=== PATIENT | female | born 1950 | race Caucasian/White ===

== ENCOUNTER 2017-08-31 08:37 | Observation (INO) | payer MEDICARE, BC ==
[2017-08-31] MEDS ORDERED: Ondansetron 4 MG/2 ML SDV IVPUSH ONE ×2 (09:59→11:07)
[2017-08-31] MEDS ORDERED: Sodium Chloride 0.9% 1,000 ML IV SCH (10:00)
[2017-08-31] MEDS ORDERED: Ondansetron 4 MG/2 ML SDV ONE ×2 (10:10→10:59)
[2017-08-31] MEDS: Sodium Chloride 0.9% 10 ML Syringe FLUSH PRN ×2 (10:16→21:54)
--- NOTE | 2017-08-31 10:30 | EDM.PDOC ---
ED HPI GENERAL MEDICAL PROBLEM - General Chief Complaint: General Stated Complaint: DIARRHEA Time Seen by Provider: 08/31/17 09:45 Source of Information: Reports: Patient, Family History Limitations: Reports: No Limitations - History of Present Illness INITIAL COMMENTS - FREE TEXT/NARRATIVE: This is a 67yo F with left knee replacement done in [place] on 08-04-17. Patient did develop a DVT of the leg and placed on coumadin. She has a f/u coumadin check tomorrow as her INR has been elevated. Patient was also placed on keflex as they felt she may have had a cellulitis of the left lower leg. Patient has been having loose but not watery stools the past week and she has felt nauseated and unable to eat the past 3 days. Onset: Gradual Duration: Day(s): Location: Reports: Generalized Severity: Moderate Improves with: Reports: None Worsens with: Reports: None Associated Symptoms: Reports: Loss of Appetite, Nausea/Vomiting - Related Data Allergies Allergy/AdvReac Type Severity Reaction Status Date / Time No Known Allergies Allergy Verified 08/31/17 11:16 Home Meds: Home Meds Cyclobenzaprine HCl 5 mg PO TID PRN 08/31/17 [History] Diazepam [Valium] 5 mg PO Q6HR 08/31/17 [History] Escitalopram [Lexapro] 10 mg PO DAILY 08/31/17 [History] Gabapentin [Neurontin] 300 mg PO BID 08/31/17 [History] Hydrochlorothiazide [Hydrochlorothiazide] 25 mg PO DAILY 08/31/17 [History] Vitamin B Complex [B Complex] 1 cap PO DAILY 08/31/17 [History] Warfarin Sodium [Jantoven] 2.5 mg PO ASDIRECTED 08/31/17 [History] atorvaSTATin Calcium [Atorvastatin Calcium] 40 mg PO DAILY 08/31/17 [History] metFORMIN HCl [Metformin HCl] 500 mg PO BID 08/31/17 [History] oxyCODONE 5 mg PO Q4HR PRN 08/31/17 [History] oxyCODONE ER [OxyCONTIN] 10 mg PO BID 08/31/17 [History] Past Medical History Cardiovascular History: Reports: Blood Clots/VTE/DVT Neurological History: Reports: Other (See Below) Other Neuro History: 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 ED EXAM, GENERAL - Physical Exam Exam: See Below Exam Limited By: No Limitations General Appearance: Alert, WD/WN, Mild Distress Eye Exam: Bilateral Eye: EOMI, PERRL Ears: Normal External Exam Nose: Normal Inspection Throat/Mouth: Normal Inspection Head: Atraumatic, Normocephalic Neck: Normal Inspection, Supple, Non-Tender, Full Range of Motion Respiratory/Chest: No Respiratory Distress, Lungs Clear, Normal Breath Sounds Cardiovascular: Normal Peripheral Pulses, Regular Rate, Rhythm Peripheral Pulses: 2+: Dorsalis Pedis (L), Dorsalis Pedis (R) GI/Abdominal: Abnormal Bowel Sounds (decreased) Back Exam: Normal Inspection Extremities: Normal Inspection Neurological: Alert, Oriented, Other (left foot drop- consistent with history ) Psychiatric: Normal Affect, Normal Mood Skin Exam: Warm, Dry, Intact Course - Orders/Labs/Meds Orders: Active Orders 24 hr Category Date Time Status Patient Status [ADT] Routine ADT 08/31/17 11:56 Ordered EKG Documentation Completion [RC] ASDIRECTED Care 08/31/17 09:41 Active Oxygen Therapy [RC] PRN Care 08/31/17 11:56 Ordered Vital Signs [RC] Q4H Care 08/31/17 11:56 Ordered Regular Diet [DIET] Diet 08/31/17 Dinner Ordered Dextrose 5%-0.9% NaCl with KCl [D5 NS with 20 mEq KCl] Med 08/31/17 11:15 Active 1,000 ml IV ASDIRECTED Ondansetron [Zofran] Med 08/31/17 12:00 Ordered 4 mg IVPUSH Q6H Promethazine [Phenergan] 12.5 mg Med 08/31/17 11:58 Ordered Sodium Chloride 0.9% [Normal Saline] 50 ml IV Q6H Sodium Chloride 0.9% [Normal Saline] 1,000 ml Med 08/31/17 10:00 Active IV ASDIRECTED Sodium Chloride 0.9% [Saline Flush] Med 08/31/17 09:59 Active 10 ml FLUSH ASDIRECTED PRN Peripheral IV Insertion Adult [OM.PC] Routine Oth 08/31/17 09:59 Ordered Medication Orders Sodium Chloride (Normal Saline) 1,000 mls @ 450 mls/hr IV ASDIRECTED RAJWINDER Last Admin: 08/31/17 10:04 Dose: 450 mls/hr Potassium Chloride/Dextrose/Sod Cl (D5 Ns With 20 Meq Kcl) 1,000 mls @ 250 mls/ hr IV ASDIRECTED RAJWINDER Last Admin: 08/31/17 11:37 Dose: 250 mls/hr Promethazine HCl 12.5 mg/ (Sodium Chloride) 50.5 mls @ 200 mls/hr IV Q6H PRN PRN Reason: Nausea/Vomiting Ondansetron HCl (Zofran) 4 mg IVPUSH Q6H RAJWINDER Sodium Chloride (Saline Flush) 10 ml FLUSH ASDIRECTED PRN PRN Reason: Keep Vein Open Last Admin: 08/31/17 10:16 Dose: 10 ml Labs: Laboratory Tests 08/31/17 08/31/17 08/31/17 Range/Units 09:50 09:50 09:51 WBC 6.4 (4.0-11.0) K/uL RBC 3.94 (3.80-5.80) M/uL Hgb 10.7 L (11.5-16.5) g/dL Hct 32.3 L (37.0-47.0) % MCV 82 (76-96) fL MCH 27.2 (27.0-32.0) pg MCHC 33.1 (31.0-35.0) g/dL RDW 13.6 (11.0-16.0) % Plt Count 566 H (150-500) K/uL MPV 9.1 (6.0-10.0) fL Neut % (Auto) 70.1 H (45.0-70.0) % Lymph % (Auto) 21.9 (20.0-40.0) % [place] % (Auto) 6.9 (3.0-10.0) % Eos % (Auto) 0.5 L (1.0-5.0) % Baso % (Auto) 0.6 H (0.0-0.5) % Neut # (Auto) 4.45 (2.00-7.50) K/uL Lymph # (Auto) 1.39 L (1.50-4.00) K/uL [place] # (Auto) 0.44 (0.20-0.80) K/uL Eos # (Auto) 0.03 L (0.04-0.40) K/uL Baso # (Auto) 0.04 (0.02-0.10) K/uL PT 32.8 H D (9.0-11.5) sec INR 3.5 D (1.0-3.5) Sodium 138 (136-145) mmol/L Potassium 3.3 L (3.5-5.1) mmol/L Chloride 99 (98-107) mmol/L Carbon Dioxide 26.4 (21.0-32.0) mmol/L Anion Gap 15.9 H (5.0-15.0) mmol/L BUN 14 (8-26) mg/dL Creatinine 0.71 (0.55-1.02) mg/dL Est Cr Clr Drug Dosing TNP Estimated GFR (MDRD) > 60 (>60) MLS/MIN BUN/Creatinine Ratio 19.7 (6-25) Glucose 121 H (74-100) mg/dL Calcium 9.6 (8.5-10.1) mg/dL Total Bilirubin 0.6 (0.0-1.0) mg/dL AST 55 H (15-37) U/L ALT 37 (12-78) U/L Alkaline Phosphatase 118 H (46-116) U/L Troponin I < 0.017 (0.000-0.060) ng/mL Total Protein 8.1 (6.4-8.2) g/dL Albumin 2.9 L (3.4-5.0) g/dL Globulin 5.2 H (2.2-4.2) g/dL Albumin/Globulin Ratio 0.6 L (0.8-2.0) Meds: Medications Generic Name Dose Route Start Last Admin Trade Name Freq PRN Reason Stop Dose Admin Sodium Chloride 1,000 mls @ 450 mls/hr 08/31/17 10:00 08/31/17 10:04 Normal Saline IV 450 mls/hr ASDIRECTED RAJWINDER Administration Potassium Chloride/Dextrose/Sod Cl 1,000 mls @ 250 mls/hr 08/31/17 11:15 07/10 11:37 D5 Ns With 20 Meq Kcl IV 250 mls/hr ASDIRECTED RAJWINDER Administration Promethazine HCl 12.5 mg/ 50.5 mls @ 200 mls/hr 08/31/17 11:58 Sodium Chloride IV Q6H PRN Nausea/Vomiting Ondansetron HCl 4 mg 08/31/17 12:00 Zofran IVPUSH Q6H RAJWINDER Sodium Chloride 10 ml 08/31/17 09:59 08/31/17 10:16 Saline Flush FLUSH 10 ml ASDIRECTED PRN Administration Keep Vein Open Discontinued Medications Generic Name Dose Route Start Last Admin Trade Name Freq PRN Reason Stop Dose Admin Al Hydroxide/Mg Hydroxide Confirm 08/31/17 11:04 08/31/17 11:10 Mag-Al Plus Administered 08/31/17 11:05 Not Given Dose 30 ml .ROUTE .STK-MED ONE Al Hydroxide/Mg Hydroxide 30 ml 08/31/17 11:08 08/31/17 11:10 Mag-Al Plus PO 08/31/17 11:09 30 ml ONETIME ONE Administration Potassium Chloride/Dextrose/Sod Cl Confirm 08/31/17 10:56 08/31/17 11:04 D5 Ns With 20 Meq Kcl Administered 08/31/17 10:57 Not Given Dose 1,000 mls @ as directed .ROUTE .STK-MED ONE Potassium Chloride/Dextrose/Sod Cl Confirm 08/31/17 10:57 08/31/17 11:12 D5 Ns With 20 Meq Kcl Administered 08/31/17 10:58 Not Given Dose 1,000 mls @ as directed .ROUTE .STK-MED ONE Promethazine HCl 12.5 mg/ 50.5 mls @ 200 mls/hr 08/31/17 11:32 08/31/17 11:40 Sodium Chloride IV 08/31/17 11:47 200 mls/hr ONETIME ONE Administration Magnesium Hydroxide Confirm 08/31/17 11:01 08/31/17 11:10 Milk Of Magnesia Administered 08/31/17 11:02 Not Given Dose 30 ml .ROUTE .STK-MED ONE Ondansetron HCl 4 mg 08/31/17 09:59 08/31/17 10:06 Zofran IVPUSH 08/31/17 10:00 4 mg ONETIME ONE Administration Ondansetron HCl Confirm 08/31/17 10:10 08/31/17 11:12 Zofran Administered 08/31/17 10:11 Not Given Dose 4 mg .ROUTE .STK-MED ONE Ondansetron HCl Confirm 08/31/17 10:59 08/31/17 11:13 Zofran Administered 08/31/17 11:00 Not Given Dose 4 mg .ROUTE .STK-MED ONE Ondansetron HCl 4 mg 08/31/17 11:07 08/31/17 11:13 Zofran IVPUSH 08/31/17 11:08 4 mg ONETIME ONE Administration Promethazine HCl Confirm 08/31/17 11:43 Phenergan Administered 08/31/17 11:44 Dose 25 mg .ROUTE .STK-MED ONE Departure - Departure Time of Disposition: 12:15 Disposition: Refer to Observation Condition: Good Clinical Impression: Diarrhea, Nausea, Loss of appetite, Dehydration symptoms, Hypokalemia - Discharge Information Referrals: PCP,None [Primary Care Provider] - Forms: ED Department Discharge - Problem List & Annotations (1) Dehydration symptoms SNOMED Code(s): 1703699 Code(s): R63.8 - OTHER SYMPTOMS AND SIGNS CONCERNING FOOD AND FLUID INTAKE Status: Acute Priority: High Current Visit: Yes (2) Diarrhea SNOMED Code(s): 67341903 Code(s): R19.7 - DIARRHEA, UNSPECIFIED Status: Acute Priority: High Current Visit: Yes (3) Hypokalemia SNOMED Code(s): 16686734 Code(s): E87.6 - HYPOKALEMIA Status: Acute Priority: High Current Visit : Yes (4) Loss of appetite SNOMED Code(s): 06778554 Code(s): R63.0 - ANOREXIA Status: Acute Priority: High Current Visit: Yes (5) Nausea SNOMED Code(s): 786583719 Code(s): R11.0 - NAUSEA Status: Acute Priority: High Current Visit: Yes - Problem List Review Problem List Initiated/Reviewed/Updated: Yes - My Orders Last 24 Hours: My Active Orders 08/31/17 09:41 EKG Documentation Completion [RC] ASDIRECTED 08/31/17 09:59 Sodium Chloride 0.9% [Saline Flush] 10 ml FLUSH ASDIRECTED PRN Peripheral IV Insertion Adult [OM.PC] Routine 08/31/17 10:00 Sodium Chloride 0.9% [Normal Saline] 1,000 ml IV ASDIRECTED 08/31/17 11:15 Dextrose 5%-0.9% NaCl with KCl [D5 NS with 20 mEq KCl] 1,000 ml IV ASDIRECTED 08/31/17 11:56 Patient Status [ADT] Routine Oxygen Therapy [RC] PRN Vital Signs [RC] Q4H 08/31/17 11:58 Promethazine [Phenergan] 12.5 mg Sodium Chloride 0.9% [Normal Saline] 50 ml IV Q6H 08/31/17 12:00 Ondansetron [Zofran] 4 mg IVPUSH Q6H 08/31/17 Dinner Regular Diet [DIET] - Assessment/Plan Last 24 Hours: My Active Orders 08/31/17 09:41 EKG Documentation Completion [RC] ASDIRECTED 08/31/17 09:59 Sodium Chloride 0.9% [Saline Flush] 10 ml FLUSH ASDIRECTED PRN Peripheral IV Insertion Adult [OM.PC] Routine 08/31/17 10:00 Sodium Chloride 0.9% [Normal Saline] 1,000 ml IV ASDIRECTED 08/31/17 11:15 Dextrose 5%-0.9% NaCl with KCl [D5 NS with 20 mEq KCl] 1,000 ml IV ASDIRECTED 08/31/17 11:56 Patient Status [ADT] Routine Oxygen Therapy [RC] PRN Vital Signs [RC] Q4H 08/31/17 11:58 Promethazine [Phenergan] 12.5 mg Sodium Chloride 0.9% [Normal Saline] 50 ml IV Q6H 08/31/17 12:00 Ondansetron [Zofran] 4 mg IVPUSH Q6H 08/31/17 Dinner Regular Diet [DIET] Plan: Patient placed in observation and we will continue nausea management and fluid resuscitation.
[2017-08-31] MEDS ORDERED: Dextrose 5%-0.9% NaCl with KCl 1,000 ML ONE ×2 (10:56→10:57)
[2017-08-31] MEDS ORDERED: Magnesium Hydroxide 400 MG/5 ML Susp 30 ML Cup ONE (11:01)
[2017-08-31] MEDS ORDERED: Aluminum Hydroxide/Magnesium Hydroxide/Simethicone Susp 30 ML Cup ONE (11:04)
[2017-08-31] MEDS ORDERED: Aluminum Hydroxide/Magnesium Hydroxide/Simethicone Susp 30 ML Cup PO ONE (11:08)
[2017-08-31] MEDS ORDERED: Ondansetron 4 MG/2 ML SDV IVPUSH SCH (11:15)
[2017-08-31] MEDS ORDERED: Promethazine 12.5 MG in Sodium Chloride 0.9% 50 ML IV ONE (11:32)
[2017-08-31] MEDS: Dextrose 5%-0.9% NaCl with KCl 1,000 ML IV SCH ×2 (11:37→21:15)
[2017-08-31] MEDS ORDERED: Promethazine 25 MG/ML SDV ONE (11:43)
[2017-08-31] MEDS ORDERED: Promethazine 12.5 MG in Sodium Chloride 0.9% 50 ML IV PRN (11:58)
[2017-08-31] MEDS: Ondansetron 4 MG/2 ML SDV IVPUSH SCH ×2 (12:41→17:58)
[2017-08-31] MEDS ORDERED: rOPINIRole 0.25 MG Tab PO ONE (14:12)
[2017-08-31] MEDS ORDERED: rOPINIRole 0.25 MG Tab ONE (14:23)
[2017-08-31] MEDS ORDERED: Zolpidem 5 MG Tab PO PRN (19:37)
[2017-08-31] MEDS ORDERED: rOPINIRole 0.25 MG Tab PO SCH (20:00)
[2017-08-31] MEDS: Promethazine 25 MG in Sodium Chloride 0.9% 50 ML IV PRN (20:02)
[2017-09-01] MEDS: Ondansetron 4 MG/2 ML SDV IVPUSH SCH ×5 (00:30→23:03)
[2017-09-01] MEDS: Dextrose 5%-0.9% NaCl with KCl 1,000 ML IV SCH ×3 (01:36→08:27)
[2017-09-01] MEDS: Sodium Chloride 0.9% 10 ML Syringe FLUSH PRN (01:37)
[2017-09-01] MEDS: Promethazine 25 MG in Sodium Chloride 0.9% 50 ML IV PRN ×3 (08:26→22:15)
--- NOTE | 2017-09-01 10:39 | PCM.PN ---
- General Info Date of Service: 09/01/17 Subjective Update: This is a 67yo F with recent left knee surgery who developed a DVT and placed on coumadin and diagnosed with a left leg cellulitis and placed on keflex. Patient has had diarrhea for over a week going multiple times a day and has not been able to eat the past 4 days. Patient states her symptoms improved last night but has returned this am. The nausea was 10/10 prior to arrival for 3 days and then 5/10 last night after treatment with zofran and phenergan and then returned to 8/10 this am. Functional Status: Denies: Tolerating Diet (not tolerating diet - loss of appetite) - Review of Systems General: Reports: Weakness HEENT: Reports: No Symptoms Pulmonary: Reports: No Symptoms Cardiovascular: Reports: No Symptoms Gastrointestinal: Reports: Decreased Appetite, Diarrhea, Nausea Genitourinary: Reports: No Symptoms Musculoskeletal: Reports: Back Pain, Joint Pain Skin: Reports: No Symptoms Neurological: Reports: Difficulty Walking, Weakness Psychiatric: Reports: No Symptoms - Patient Data Vitals - Most Recent: Last Vital Signs Temp 36.9 C 08/31/17 20:00 Pulse 65 08/31/17 20:00 Resp 14 08/31/17 20:00 BP 137/56 L 08/31/17 20:00 Pulse Ox 97 08/31/17 20:00 Weight - Most Recent: 82.129 kg I&O - Last 24 Hours: Intake & Output 08/31/17 09/01/17 09/01/17 22:59 06:59 14:59 Intake Total 3100 Output Total 600 Balance 2500 Med Orders - Current: Current Medications Sodium Chloride (Normal Saline) 1,000 mls @ 450 mls/hr IV ASDIRECTED [facility] Last Admin: 08/31/17 10:04 Dose: 450 mls/hr Potassium Chloride/Dextrose/Sod Cl (D5 Ns With 20 Meq Kcl) 1,000 mls @ 250 mls/ hr IV ASDIRECTED [facility] Last Admin: 09/01/17 08:27 Dose: 250 mls/hr Promethazine HCl 25 mg/ Sodium (Chloride) 50 mls @ 200 mls/hr IV Q6H PRN PRN Reason: Nausea/Vomiting Last Admin: 09/01/17 08:26 Dose: 200 mls/hr Ondansetron HCl (Zofran) 4 mg IVPUSH Q6H RAJWINDER Last Admin: 09/01/17 05:50 Dose: 4 mg Ropinirole HCl (Requip) 0.25 mg PO BEDTIME RAJWINDER Last Admin: 08/31/17 20:01 Dose: 0.25 mg Sodium Chloride (Saline Flush) 10 ml FLUSH ASDIRECTED PRN PRN Reason: Keep Vein Open Last Admin: 09/01/17 01:37 Dose: 10 ml Zolpidem Tartrate (Ambien) 10 mg PO BEDTIME PRN PRN Reason: Insomnia Last Admin: 08/31/17 21:15 Dose: 10 mg Discontinued Medications Al Hydroxide/Mg Hydroxide (Mag-Al Plus) Confirm Administered Dose 30 ml .ROUTE .STK-MED ONE Stop: 08/31/17 11:05 Last Admin: 08/31/17 11:10 Dose: Not Given Al Hydroxide/Mg Hydroxide (Mag-Al Plus) 30 ml PO ONETIME ONE Stop: 08/31/17 11:09 Last Admin: 08/31/17 11:10 Dose: 30 ml Potassium Chloride/Dextrose/Sod Cl (D5 Ns With 20 Meq Kcl) Confirm Administered Dose 1,000 mls @ as directed .ROUTE .STK-MED ONE Stop: 08/31/17 10:57 Last Admin: 08/31/17 11:04 Dose: Not Given Potassium Chloride/Dextrose/Sod Cl (D5 Ns With 20 Meq Kcl) Confirm Administered Dose 1,000 mls @ as directed .ROUTE .STK-MED ONE Stop: 08/31/17 10:58 Last Admin: 08/31/17 11:12 Dose: Not Given Promethazine HCl 12.5 mg/ (Sodium Chloride) 50.5 mls @ 200 mls/hr IV ONETIME ONE Stop: 08/31/17 11:47 Last Admin: 08/31/17 11:40 Dose: 200 mls/hr Promethazine HCl 12.5 mg/ (Sodium Chloride) 50.5 mls @ 200 mls/hr IV Q6H PRN PRN Reason: Nausea/Vomiting Magnesium Hydroxide (Milk Of Magnesia) Confirm Administered Dose 30 ml .ROUTE .STK-MED ONE Stop: 08/31/17 11:02 Last Admin: 08/31/17 11:10 Dose: Not Given Ondansetron HCl (Zofran) 4 mg IVPUSH ONETIME ONE Stop: 08/31/17 10:00 Last Admin: 08/31/17 10:06 Dose: 4 mg Ondansetron HCl (Zofran) Confirm Administered Dose 4 mg .ROUTE .STK-MED ONE Stop: 08/31/17 10:11 Last Admin: 08/31/17 11:12 Dose: Not Given Ondansetron HCl (Zofran) Confirm Administered Dose 4 mg .ROUTE .STK-MED ONE Stop: 08/31/17 11:00 Last Admin: 08/31/17 11:13 Dose: Not Given Ondansetron HCl (Zofran) 4 mg IVPUSH ONETIME ONE Stop: 08/31/17 11:08 Last Admin: 08/31/17 11:13 Dose: 4 mg Promethazine HCl (Phenergan) Confirm Administered Dose 25 mg .ROUTE .STK-MED ONE Stop: 08/31/17 11:44 Last Admin: 08/31/17 12:40 Dose: Not Given Ropinirole HCl (Requip) 0.25 mg PO ONETIME ONE Stop: 08/31/17 14:13 Last Admin: 08/31/17 14:30 Dose: 0.25 mg Ropinirole HCl (Requip) Confirm Administered Dose 0.25 mg .ROUTE .STK-MED ONE Stop: 08/31/17 14:24 Last Admin: 08/31/17 14:30 Dose: Not Given - Exam General: Alert, Oriented HEENT: Pupils Equal, Pupils Reactive, EOMI Lungs: Clear to Auscultation, Normal Respiratory Effort Cardiovascular: Regular Rate, Regular Rhythm GI/Abdominal Exam: Normal Bowel Sounds, Soft, Non-Tender Back Exam: Muscle Spasm Extremities: Normal Inspection Skin: Warm, Dry, Intact Neurological: No New Focal Deficit Psy/Mental Status: Alert, Normal Affect, Normal Mood - Problem List & Annotations (1) Dehydration symptoms SNOMED Code(s): 5728228 Code(s): R63.8 - OTHER SYMPTOMS AND SIGNS CONCERNING FOOD AND FLUID INTAKE Status: Acute Priority: High Current Visit: Yes (2) Diarrhea SNOMED Code(s): 83540730 Code(s): R19.7 - DIARRHEA, UNSPECIFIED Status: Acute Priority: High Current Visit: Yes (3) Hypokalemia SNOMED Code(s): 93016514 Code(s): E87.6 - HYPOKALEMIA Status: Acute Priority: High Current Visit : Yes (4) Loss of appetite SNOMED Code(s): 72477034 Code(s): R63.0 - ANOREXIA Status: Acute Priority: High Current Visit: Yes (5) Nausea SNOMED Code(s): 444968325 Code(s): R11.0 - NAUSEA Status: Acute Priority: High Current Visit: Yes - Problem List Review Problem List Initiated/Reviewed/Updated: Yes - My Orders Last 24 Hours: My Active Orders 08/31/17 18:06 Promethazine [Phenergan] 25 mg Sodium Chloride 0.9% [Normal Saline] 50 ml IV Q6H 08/31/17 19:37 Zolpidem [Ambien] 10 mg PO BEDTIME PRN 08/31/17 20:00 rOPINIRole [Requip] 0.25 mg PO BEDTIME 09/01/17 09:02 CULTURE MRSA SURVEY [RM] Routine 09/01/17 09:48 CLOSTRIDIUM DIFFICILE BY PCR [RM] Routine OVA AND PARASITES [MREF] Routine 09/01/17 10:31 ASPARTATE AMNIOTRANSFERASE,AST [CHEM] Routine INR,PT,PROTHROMBIN TIME [COAG] Routine POTASSIUM,K [CHEM] Routine 09/01/17 10:32 GI BACTERIAL PCR PANEL Routine - Plan Plan:: We will f/u labs this AM. Recheck PT/INR. Continue hydration and D5 NS and hold K+. Stool studies ordered. F/u studies and trial of imodium.
[2017-09-01] MEDS ORDERED: Loperamide 2 MG Cap PO PRN (10:42)
[2017-09-01] MEDS ORDERED: Loperamide 2 MG Cap PO ONE (10:42)
[2017-09-01] MEDS: rOPINIRole 0.25 MG Tab PO SCH ×3 (11:43→19:35)
[2017-09-01] MEDS ORDERED: Sodium Chloride 0.9% 10 ML Syringe FLUSH PRN (13:13)
[2017-09-01] MEDS: Dextrose 5%-0.45% NaCl 1,000 ML IV SCH ×2 (16:11→23:03)
[2017-09-01] MEDS: Metoclopramide 10 MG/2 ML SDV IVPUSH SCH ×2 (17:05→23:03)
[2017-09-01] MEDS ORDERED: Ondansetron 4 MG/2 ML SDV ONE (17:47)
[2017-09-01] MEDS: Melatonin 3 MG Tab PO SCH ×2 (19:36→20:49)
[2017-09-02] MEDS: Promethazine 25 MG in Sodium Chloride 0.9% 50 ML IV PRN (04:06)
[2017-09-02] MEDS: Metoclopramide 10 MG/2 ML SDV IVPUSH SCH (05:07)
[2017-09-02] MEDS: Ondansetron 4 MG/2 ML SDV IVPUSH SCH (05:08)
[2017-09-02] MEDS: Dextrose 5%-0.45% NaCl 1,000 ML IV SCH (06:36)
[2017-09-02] MEDS: rOPINIRole 0.25 MG Tab PO SCH (08:01)
--- NOTE | 2017-09-02 12:53 | CT ---
DATE OF SERVICE: 09/02/17 CLINICAL DATA: intractable nausea and vomiting ABDOMEN AND PELVIC CT: Multislice acquisition through the abdomen and pelvis without IV, but with oral contrast was performed. No priors. There is a small right pleural effusion. There are mild atelectatic changes in both lower lungs. There are linear densities in both lung bases, consistent with linear atelectasis or fibrosis. The heart size is normal. There is calcification in the region of the mitral valve annulus. There is a small hiatal hernia. The unenhanced liver appears normal. No focal hepatic lesions. The gallbladder is normal size. No definite gallstones. The gallbladder wall does however appear thickened and there is questionable pericholecystic fluid. Gallbladder ultrasound is recommended. The spleen appears normal. 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 The pancreas appears normal. The right and left adrenals appear normal. No nephrocalcinosis or nephrolithiasis. No hydronephrosis or hydroureter. The bladder is partially fluid filled and appears normal. The patient is status post hysterectomy. The appendix is not identified. No evidence of appendicitis. There is apparent diffuse gastric wall thickening. this is probably related to nondistention. Gastritis should be considered. There are surgical changes in the anterior abdominal wall. No free air. No free fluid. No dilated loops of bowel. No adenopathy. No aortic aneurysm. IMPRESSION: 1) Abnormal appearing gallbladder as discussed above. Gallbladder ultrasound is recommended. 2) Other findings as discussed above. [id number] MTDD
--- NOTE | 2017-09-02 14:29 | PCM.DCSUM1 ---
Discharge Summary - Discharge Data Discharge Date: 09/02/17 Discharge Disposition: Home, Self-Care 01 Condition: Good - Discharge Diagnosis/Problem(s) (1) Dehydration symptoms SNOMED Code(s): 3903828 ICD Code: R63.8 - OTHER SYMPTOMS AND SIGNS CONCERNING FOOD AND FLUID INTAKE Status: Acute Priority: High Current Visit: Yes (2) Diarrhea SNOMED Code(s): 42756425 ICD Code: R19.7 - DIARRHEA, UNSPECIFIED Status: Acute Priority: High Current Visit: Yes (3) Hypokalemia SNOMED Code(s): 82374681 ICD Code: E87.6 - HYPOKALEMIA Status: Acute Priority: High Current Visit: Yes (4) Loss of appetite SNOMED Code(s): 75085886 ICD Code: R63.0 - ANOREXIA Status: Acute Priority: High Current Visit: Yes (5) Nausea SNOMED Code(s): 589636836 ICD Code: R11.0 - NAUSEA Status: Acute Priority: High Current Visit: Yes - Patient Instructions Diet: Usual Diet as Tolerated Activity: As Tolerated Driving: Do Not Drive Notify Provider of: Nausea and/or Vomiting - Discharge Plan Home Medications: Home Meds Cyclobenzaprine HCl 5 mg PO TID PRN 08/31/17 [History] Diazepam [Valium] 5 mg PO Q6HR 08/31/17 [History] Escitalopram [Lexapro] 10 mg PO DAILY 08/31/17 [History] Gabapentin [Neurontin] 300 mg PO BID 08/31/17 [History] Hydrochlorothiazide [Hydrochlorothiazide] 25 mg PO DAILY 08/31/17 [History] Vitamin B Complex [B Complex] 1 cap PO DAILY 08/31/17 [History] Warfarin Sodium [Jantoven] 2.5 mg PO ASDIRECTED 08/31/17 [History] atorvaSTATin Calcium [Atorvastatin Calcium] 40 mg PO DAILY 08/31/17 [History] metFORMIN HCl [Metformin HCl] 500 mg PO BID 08/31/17 [History] oxyCODONE 5 mg PO Q4HR PRN 08/31/17 [History] oxyCODONE ER [OxyCONTIN] 10 mg PO BID 08/31/17 [History] Patient Handouts: Fall Prevention in the Home, [id number], Nausea and Vomiting, Adult Forms: ED Department Discharge Referrals: PCP,None [Primary Care Provider] - - Discharge Summary/Plan Comment Discharge Summary/Plan Comment: Counseled on f/u U/S gallbladder. Discussed repeat INR tomorrow and f/u in clinic as directed and as needed. Discussed further evaluation and management if symptoms persist. Discussed f/u ER as needed. Reglan, promethazine and loperamide sent to [facility]. - Patient Data Vitals - Most Recent: Last Vital Signs Temp 37.1 C 09/02/17 03:10 Pulse 57 L 09/02/17 03:10 Resp 14 09/02/17 03:10 BP 169/82 H 09/01/17 23:11 Pulse Ox 99 09/01/17 20:01 Weight - Most Recent: 82.1 kg I&O - Last 24 hours: Intake & Output 09/01/17 09/02/17 09/02/17 22:59 06:59 14:59 Intake Total 51 1982 Output Total 645 455 Balance -594 1527 Lab Results - Last 24 hrs: Laboratory Results - last 24 hr 09/02/17 09/02/17 09/02/17 Range/Units 07:05 07:10 07:10 WBC 11.1 H D (4.0-11.0) K/uL RBC 3.24 L (3.80-5.80) M/uL Hgb 8.8 L (11.5-16.5) g/dL Hct 27.1 L (37.0-47.0) % MCV 84 (76-96) fL MCH 27.2 (27.0-32.0) pg MCHC 32.5 (31.0-35.0) g/dL RDW 14.0 (11.0-16.0) % Plt Count 473 (150-500) K/uL MPV 9.1 (6.0-10.0) fL Neut % (Auto) 72.7 H (45.0-70.0) % Lymph % (Auto) 17.6 L (20.0-40.0) % [place] % (Auto) 8.7 (3.0-10.0) % Eos % (Auto) 0.6 L (1.0-5.0) % Baso % (Auto) 0.4 (0.0-0.5) % Neut # (Auto) 8.08 H (2.00-7.50) K/uL Lymph # (Auto) 1.96 (1.50-4.00) K/uL [place] # (Auto) 0.97 H (0.20-0.80) K/uL Eos # (Auto) 0.07 (0.04-0.40) K/uL Baso # (Auto) 0.04 (0.02-0.10) K/uL PT 47.9 H (9.0-11.5) sec INR 5.1 H* (1.0-3.5) Sodium 137 (136-145) mmol/L Potassium 3.4 L D (3.5-5.1) mmol/L Chloride 102 (98-107) mmol/L Carbon Dioxide 23.8 (21.0-32.0) mmol/L Anion Gap 14.6 (5.0-15.0) mmol/L BUN 4 L D (8-26) mg/dL Creatinine 0.68 (0.55-1.02) mg/dL Est Cr Clr Drug Dosing 67.32 mL/min Estimated GFR (MDRD) > 60 (>60) MLS/MIN BUN/Creatinine Ratio 5.9 L (6-25) Glucose 140 H (74-100) mg/dL Calcium 8.4 L (8.5-10.1) mg/dL AST 50 H (15-37) U/L ALT 33 (12-78) U/L SERINA Results - Last 24 hrs: Microbiology 09/01/17 11:45 MRSA Surveillance Culture - Final Nares, Unspecified NO MRSA ISOLATED 09/01/17 09:48 Clostridium difficile (PCR) - Final Stool / Feces Med Orders - Current: Current Medications Sodium Chloride (Normal Saline) 1,000 mls @ 450 mls/hr IV ASDIRECTED RAJWINDER Last Admin: 08/31/17 10:04 Dose: 450 mls/hr Promethazine HCl 25 mg/ Sodium (Chloride) 50 mls @ 200 mls/hr IV Q6H PRN PRN Reason: Nausea/Vomiting Last Admin: 09/02/17 04:06 Dose: 200 mls/hr Dextrose/Sodium Chloride (Dextrose 5%-1/2 Ns) 1,000 mls @ 150 mls/hr IV ASDIRECTED RAJWINDER Last Admin: 09/02/17 06:36 Dose: 150 mls/hr Loperamide HCl (Imodium) 2 mg PO Q4H PRN PRN Reason: Diarrhea Last Admin: 09/01/17 11:46 Dose: 2 mg Meclizine HCl (Antivert) 25 mg PO TID PRN PRN Reason: Nausea Last Admin: 09/01/17 14:10 Dose: 25 mg Melatonin (Melatonin) 6 mg PO BEDTIME RAJWINDER Last Admin: 09/01/17 20:49 Dose: Not Given Metoclopramide HCl (Reglan) 5 mg IVPUSH Q6H RAJWINDER Last Admin: 09/02/17 05:07 Dose: 5 mg Ondansetron HCl (Zofran) 4 mg IVPUSH Q6H RAJWINDER Last Admin: 09/02/17 05:08 Dose: 4 mg Ropinirole HCl (Requip) 0.25 mg PO TID RAJWINDER Last Admin: 09/02/17 08:01 Dose: 0.25 mg Sodium Chloride (Saline Flush) 10 ml FLUSH ASDIRECTED PRN PRN Reason: Keep Vein Open Last Admin: 09/01/17 01:37 Dose: 10 ml Sodium Chloride (Saline Flush) 10 ml FLUSH ASDIRECTED PRN PRN Reason: Keep Vein Open Discontinued Medications Al Hydroxide/Mg Hydroxide (Mag-Al Plus) Confirm Administered Dose 30 ml .ROUTE .[employer] ONE Stop: 08/31/17 11:05 Last Admin: 08/31/17 11:10 Dose: Not Given Al Hydroxide/Mg Hydroxide (Mag-Al Plus) 30 ml PO ONETIME ONE Stop: 08/31/17 11:09 Last Admin: 08/31/17 11:10 Dose: 30 ml Potassium Chloride/Dextrose/Sod Cl (D5 Ns With 20 Meq Kcl) Confirm Administered Dose 1,000 mls @ as directed .ROUTE .[employer] ONE Stop: 08/31/17 10:57 Last Admin: 08/31/17 11:04 Dose: Not Given Potassium Chloride/Dextrose/Sod Cl (D5 Ns With 20 Meq Kcl) Confirm Administered Dose 1,000 mls @ as directed .ROUTE .[employer] ONE Stop: 08/31/17 10:58 Last Admin: 08/31/17 11:12 Dose: Not Given Potassium Chloride/Dextrose/Sod Cl (D5 Ns With 20 Meq Kcl) 1,000 mls @ 250 mls/ hr IV ASDIRECTED RAJWINDER Last Admin: 09/01/17 08:27 Dose: 250 mls/hr Promethazine HCl 12.5 mg/ (Sodium Chloride) 50.5 mls @ 200 mls/hr IV ONETIME ONE Stop: 08/31/17 11:47 Last Admin: 08/31/17 11:40 Dose: 200 mls/hr Promethazine HCl 12.5 mg/ (Sodium Chloride) 50.5 mls @ 200 mls/hr IV Q6H PRN PRN Reason: Nausea/Vomiting Loperamide HCl (Imodium) 2 mg PO ONETIME ONE Stop: 09/01/17 10:43 Last Admin: 09/01/17 19:46 Dose: Not Given Magnesium Hydroxide (Milk Of Magnesia) Confirm Administered Dose 30 ml .ROUTE .[facility] ONE Stop: 08/31/17 11:02 Last Admin: 08/31/17 11:10 Dose: Not Given Ondansetron HCl (Zofran) 4 mg IVPUSH ONETIME ONE Stop: 08/31/17 10:00 Last Admin: 08/31/17 10:06 Dose: 4 mg Ondansetron HCl (Zofran) Confirm Administered Dose 4 mg .ROUTE .[facility] ONE Stop: 08/31/17 10:11 Last Admin: 08/31/17 11:12 Dose: Not Given Ondansetron HCl (Zofran) Confirm Administered Dose 4 mg .ROUTE .[facility] ONE Stop: 08/31/17 11:00 Last Admin: 08/31/17 11:13 Dose: Not Given Ondansetron HCl (Zofran) 4 mg IVPUSH ONETIME ONE Stop: 08/31/17 11:08 Last Admin: 08/31/17 11:13 Dose: 4 mg Ondansetron HCl (Zofran) Confirm Administered Dose 4 mg .ROUTE .[facility]-MED ONE Stop: 09/01/17 17:48 Last Admin: 09/01/17 17:57 Dose: Not Given Promethazine HCl (Phenergan) Confirm Administered Dose 25 mg .ROUTE .[facility]-MED ONE Stop: 08/31/17 11:44 Last Admin: 08/31/17 12:40 Dose: Not Given Ropinirole HCl (Requip) 0.25 mg PO ONETIME ONE Stop: 08/31/17 14:13 Last Admin: 08/31/17 14:30 Dose: 0.25 mg Ropinirole HCl (Requip) Confirm Administered Dose 0.25 mg .ROUTE .[facility] ONE Stop: 08/31/17 14:24 Last Admin: 08/31/17 14:30 Dose: Not Given Ropinirole HCl (Requip) 0.25 mg PO BEDTIME RAJWINDER Last Admin: 08/31/17 20:01 Dose: 0.25 mg Zolpidem Tartrate (Ambien) 10 mg PO BEDTIME PRN PRN Reason: Insomnia Last Admin: 08/31/17 21:15 Dose: 10 mg *Q Meaningful Use (DIS) - VTE *Q VTE Criteria *Q: - Stroke *Q Stroke Criteria *Q: - AMI *Q AMI Criteria *Q:
[2017-09-02 14:49] VITALS: BP 180/85
[2017-09-03 12:32] LABS: CAMPYLOBACTER (by PCR) Negative (NEG); SALMONELLA SPECIES (by PCR) Negative (NEG); SHIG OR ENTEROPATH ECOLI (PCR) Negative (NEG); SHIGA TOXIN PRODUC ECOLI (PCR) Negative (NEG)
== END 2017-09-02 13:45 | disposition home or self-care (01) ==
LOC: LB.ED 08:37 → LB.MS 12:05
PROVIDERS: ADMIT Family Medicine; ATTEND Family Medicine
DX: R63.8 Other symptoms and signs concerning food and fluid intake (principal); R19.7 Diarrhea, unspecified; E87.6 Hypokalemia; R63.0 Anorexia; R11.0 Nausea; Z79.01 Long term (current) use of anticoagulants; Z79.84 Long term (current) use of oral hypoglycemic drugs; Z79.899 Other long term (current) drug therapy; Z96.653 Presence of artificial knee joint, bilateral
CPT/HCPCS: 36415; 74176; 80048; 80053; 80074; 84132; 84450; 84460; 84484; 85025; 85610; 87177; 87209; 87493; 87505; 93005; 96361; 96365; 96375; 96376; 99285; A9270; G0378; J2405; J2550; J2765; J3480; J7040; J7050; 96374; 99217; 99218; 99226

== ENCOUNTER 2018-03-18 13:39 | Emergency (ER) | payer MEDICARE, BC ==
[2018-03-18 15:15] VITALS: BP 144/76
--- NOTE | 2018-03-18 17:09 | CT ---
DATE OF SERVICE: 03/18/18 CLINICAL DATA: fell - closed head injury - on Coumadin. UNENHANCED BRAIN CT: Multislice acquisition through the brain without IV contrast was performed. No priors. There is diffuse cerebral atrophy. The exam is otherwise normal. No masses or mass effect. No intracranial hemorrhage. No evidence of acute or subacute infarct. No osseous abnormalities. IMPRESSION: No acute intracranial abnormalities. [id number] [facility]
--- NOTE | 2018-03-18 17:12 | CR ---
DATE OF SERVICE: 03/18/18 CLINICAL DATA: fell - hand injury. 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 No acute fracture or dislocation. No other significant findings. [id number] [facility]
--- NOTE | 2018-03-19 00:09 | ER ---
DATE OF SERVICE: 03/18/2018 HPI: A 68-year-old lady who comes in by ambulance after falling. [place] She was in an upstairs area checking on cabins that had been cleaned recently when she fell down a few steps. Initially, she tells me she does not remember falling. She remembers waking up on the floor and the ambulance crew was there. The patient states that it hurts on the left side of her head in the anabaptist area , although she states the pain is mild. She denies any problems with neck pain, chest pain , or shortness of breath. She has been nauseated, but has not vomited. Upon arriving at the ER, she states that her nausea symptoms are greatly improving. The patient states that her right hand hurts as well. PAST MEDICAL HISTORY: Includes type 2 diabetes, dyslipidemia, and history of TIAs. CURRENT MEDICATIONS: Include metformin, Lipitor, Coumadin, Lexapro, and Flexeril. PHYSICAL EXAMINATION: GENERAL APPEARANCE: The patient is awake, she is alert she has a C-collar on. No respiratory distress. VITAL SIGNS: Reviewed. Blood pressure initially 168/67 , pulse is 74, she is afebrile, sats are 100, respiratory rate is 18. HEENT: Eyes, pupils equal, round, and reactive to light. EOMs are intact without strabismus nystagmus or ptosis. I carefully removed the C-collar. The patient's head is normocephalic. She has a couple of superficial abrasion injuries on the left side of the anabaptist and cheek. There is no bleeding or drainage from these wounds. Careful palpation of the patient's neck reveals no tenderness or swelling. There was no blood in this area. The patient is able to move her head bilaterally without any discomfort. We then discontinued the C-collar. Oral mucous membranes are moist. There is no sign of dental or oral injury. LUNGS: Clear cardiac. CARDIAC: Heart sounds distinct. There is a systolic murmur present. The patient states this is new. No one has ever told her about having a heart murmur. ABDOMEN: Soft, nontender. Bowel sounds are present. SKIN: Warm and dry. There is no lower extremity edema. LAB AND X-RAY: Head CT without contrast is negative for any acute changes. Labs done today include a CBC which is normal. PT/INR is okay. INR is 2.8. Comprehensive metabolic panel shows a potassium level is low at 3.1, glucose is 108. UA is normal. We also did get an x-ray of the patient's right hand, which does have some mild swelling at the base of the thumb. X-ray is negative for fracture. DIAGNOSES: 1. Fall with close head injury. 2. Hypokalemia. 3. Contusion injury to her right hand. TREATMENT PLAN: The patient is feeling much better during her stay in the ER. She states that now she remembers that she did catch her foot on something at the top of the stairs and that is why she fell. Treatment plan involves supplemental blood potassium. I will put her on 10 mEq a day, giving her 2-week supply. I did consult briefly with Dr. Frank involving the new heart murmur. The patient will be scheduled for an echocardiogram and we will put her on a heart monitor, a ZIO patch for 2 weeks. I do want the patient to follow up in 1 week in the clinic for recheck. She tells me that she does not have a local provider, but is willing to follow up here. The patient is to continue with activity as tolerated, taking it easy the rest of the day. She denies any nausea at this point at the time of discharge and states that she is feeling good, just with minimal pain involving the right hand and the left side of her hip. CRS/MODL /[id number] JACKY
== END 2018-03-18 16:10 | disposition home or self-care (01) ==
LOC: LB.ED 13:39
DX: S00.81XA Abrasion of other part of head, initial encounter (principal); S60.222A Contusion of left hand, initial encounter; E11.9 Type 2 diabetes mellitus without complications; E87.6 Hypokalemia; E78.5 Hyperlipidemia, unspecified; Z79.84 Long term (current) use of oral hypoglycemic drugs; Z86.73 Personal history of transient ischemic attack (TIA), and cerebral infarction without residual deficits; W10.9XXA Fall (on) (from) unspecified stairs and steps, initial encounter; Y92.59 Other trade areas as the place of occurrence of the external cause; Y99.0 Civilian activity done for income or pay
CPT/HCPCS: 0296T; 0297T; 36415; 70450; 73130; 80053; 81001; 85025; 85610; 93005; 99284; A0425; A0429

== ENCOUNTER 2022-03-06 11:02 | Emergency (ER) | payer MEDICARE, BC ==
[2022-03-06 12:46] VITALS: BP 144/75; PULSE 63
== END 2022-03-06 12:53 | disposition home or self-care (01) ==
LOC: LB.ED 11:02
DX: R42 Dizziness and giddiness (principal); E11.9 Type 2 diabetes mellitus without complications; Z79.899 Other long term (current) drug therapy; Z79.84 Long term (current) use of oral hypoglycemic drugs
CPT/HCPCS: 36415; 71046; 80048; 84484; 85025; 93005; 93010; 99282; 99284-25

== ENCOUNTER 2024-07-01 05:25 | Emergency (ER) | payer MEDICARE, BC ==
[2024-07-01 06:16] LABS: BASOPHILS ABSOLUTE AUTO 0.04 K/uL (0.02-0.10); BASOPHILS PERCENT AUTO 0.5 % (0.0-0.5); EOSINOPHILS ABSOLUTE AUTO 0.15 K/uL (0.04-0.40); EOSINOPHILS PERCENT AUTO 1.7 % (1.0-5.0); HEMATOCRIT 38.2 % (37.0-47.0); HEMOGLOBIN 12.5 g/dL (11.5-16.5); LYMPHOCYTES PERCENT AUTO 44.6 % (20.0-40.0); MEAN CORPUSCULAR HEMOGLOBIN 29.3 pg (27.0-32.0); MEAN CORPUSCULAR HGB CONC 32.7 g/dL (31.0-35.0); MEAN CORPUSCULAR VOLUME 90 fL (76-96); MEAN PLATELET VOLUME 9.5 fL (6.0-10.0); MONOCYTES ABSOLUTE AUTO 0.75 K/uL (0.20-0.80); MONOCYTES PERCENT AUTO 8.6 % (3.0-10.0); NEUTROPHILS ABSOLUTE AUTO 3.91 K/uL (2.00-7.50); NEUTROPHILS PERCENT AUTO 44.6 % (45.0-70.0); PLATELET COUNT,PLT 304 K/uL (150-500); RED BLOOD CELL COUNT 4.26 M/uL (3.80-5.80); RED CELL DISTRIBUTION WIDTH 14.1 % (11.0-16.0); WHITE BLOOD CELL COUNT,WBC 8.8 K/uL (4.0-11.0)
[2024-07-01 06:29] LABS: A/G RATIO 0.9 (0.8-2.0); ALBUMIN 3.2 g/dL (3.4-5.0); ANION GAP 14.4 mmol/L (5.0-15.0); BILIRUBIN TOTAL 0.6 mg/dL (0.0-1.0); BUN/CREATININE RATIO 13.5 (6-25); CALCIUM 8.6 mg/dL (8.5-10.1); CARBON DIOXIDE,CO2 27.9 mmol/L (21.0-32.0); CREATININE 0.96 mg/dL (0.55-1.02); EST CRCL DRUG DOSING (CG) 43.17 mL/min; POTASSIUM,K 4.3 mmol/L (3.5-5.1); PROTEIN TOTAL,TP 6.6 g/dL (6.4-8.2)
[2024-07-01] MEDS ORDERED: predniSONE 10 MG Tab ONE (07:00)
[2024-07-01] MEDS ORDERED: Albuterol 6.7 GM Inhaler INH ONE (07:00)
[2024-07-01] MEDS: Albuterol/Ipratropium 3.0-0.5 MG/3 ML Neb Soln NEB ONE (07:12)
[2024-07-01 07:13] VITALS: BP 148/80; PULSE 61
[2024-07-02] MEDS: Albuterol/Ipratropium 3.0-0.5 MG/3 ML Neb Soln ONE (08:34)
[2024-07-02] MEDS: Albuterol 6.7 GM Inhaler INH ONE (08:35)
== END 2024-07-01 07:35 | disposition home or self-care (01) ==
LOC: LB.ED 05:25 → SUPCPDRO 05:25 → LB.ED 07:35
DX: J45.20 Mild intermittent asthma, uncomplicated (principal); I10 Essential (primary) hypertension; E78.00 Pure hypercholesterolemia, unspecified; E11.9 Type 2 diabetes mellitus without complications; Z87.891 Personal history of nicotine dependence; Z90.49 Acquired absence of other specified parts of digestive tract; Z90.710 Acquired absence of both cervix and uterus; Z79.899 Other long term (current) drug therapy; Z79.84 Long term (current) use of oral hypoglycemic drugs; Z79.82 Long term (current) use of aspirin; Z88.8 Allergy status to other drugs, medicaments and biological substances; Z91.041 Radiographic dye allergy status
CPT/HCPCS: 36415; 71046; 80053; 85025; 94640; 99283; 99285; A9270-GY; J7512; J7620